=== PATIENT | female | born 1950 | race Caucasian/White ===

== ENCOUNTER 2016-11-18 21:55 | Inpatient (IN) | payer MEDICARE, OTHER ==
[2016-11-18] MEDS ORDERED: Levofloxacin 250 MG Tab PO ONE (23:53)
[2016-11-19] MEDS ORDERED: Ondansetron 4 MG Tab.DIS PO PRN (00:46)
[2016-11-19] MEDS ORDERED: Bisacodyl 5 MG Tab PO PRN (00:46)
[2016-11-19] MEDS ORDERED: Temazepam 15 MG Cap PO PRN (00:46)
[2016-11-19] MEDS ORDERED: Ibuprofen 400 MG Tab PO PRN (00:46)
[2016-11-19] MEDS ORDERED: Benztropine 1 MG Tab PO PRN (01:07)
[2016-11-19] MEDS: Acetaminophen 325 MG Tab PO PRN ×2 (03:09→12:38)
[2016-11-19] MEDS ORDERED: COLESEVELAM 625 MG PO SCH (08:00)
[2016-11-19] MEDS: Enoxaparin 40 MG/0.4 ML Syringe SUBCUT SCH (09:41)
[2016-11-19] MEDS: Levothyroxine 100 MCG Tab PO SCH (09:41)
--- NOTE | 2016-11-19 11:26 | HP ---
ADMISSION DATE: 11/19/2016 HISTORY OF PRESENT ILLNESS: Clotilde Sylvester is a 66-year-old single female from [place], [place], who was admitted through the ER to [facility][Note 3]. She presented with complicated progressive perineal discomfort, discharge in significant pain related issues. 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 Has been seen by Dr. Crescencio Willard, Surgical Oncology, last seen March 2016, has been seen by Dr. Daugherty in spring. Increasing pain discomfort and pressure dictating intervention and care. Seen in the emergency room, given one dose of oral levofloxacin, no intervention since that time. MEDICATIONS: Present daily medications include: 1. Welchol 625 mg 1 daily. 2. Levothyroxine 200 mcg one p.o. daily. 3. Meloxicam 50 mg 1 p.o. daily for pain. 4. Seroquel 300 mg at bedtime. 5. Ramipril 5 mg 1 p.o. daily for blood pressure. ALLERGIES: Allergic to penicillin, sulfa, Halcion, and diagnostic x-ray, reactions unknown. PAST MEDICAL HISTORY: Significant for schizoaffective disorder, hyperlipidemia, hypothyroidism, previous sarcoma perineal, essential hypertension, and bipolar disease. Other surgical procedures include tonsillectomy, adenoidectomy, and cholecystectomy. She has had a previous left forearm fracture. No other operative procedures, hospitalizations, unusual childhood diseases, major injuries, or fractures. SOCIAL HISTORY: Resident of [place], lives in [facility] [facility] [place], single, no children. Long-term disability due to schizophrenia. FAMILY HISTORY: Negative for early heart disease, diabetes mellitus, or inheritable cancers. REVIEW OF SYSTEMS: CONSTITUTIONAL: Complaints of perineal discomfort. EYES: Sees well by report. EARS: Hears without difficulty. Oropharynx: Good dentition and daily care. No loose teeth. CHEST: No cough, wheeze, or congestion. CARDIOVASCULAR: Denies chest pain, palpitations, or syncope. GI: Regular predictable stools, no blood in stools. : Good voiding pattern. No blood in urine. SKIN: No open sores or lesions. ENDOCRINE: No excessive thirst or urination. ALLERGY: No chronic cough, wheeze, or congestion. PSYCHIATRIC: Schizophrenia bipolar disease. PHYSICAL EXAMINATION: VITAL SINGS: 36.9, 102/66, 18, 95%. Pulse is 75 per exam. General: Elderly lady, cooperative, conversant, speech a bit gated. HEENT: Funduscopic benign. Conjunctiva clear. Bright tympanic membranes. Clear nasal discharge. Mouth and oropharynx clear. Good gag reflex. Tongue midline. NECK: Benign. Thyroid small. CHEST: Clear in all lung gould. HEART: Regular without ectopy or murmur. BREASTS: Deferred. ABDOMEN: Benign. Right upper quadrant cholecystectomy scar. Liver edge palpable. No splenic enlargement. PELVIC: Deferred, but large erythematous reactive changes. Discharge from the left perineum. Complicated fullness and redness, right perineum. EXTREMITIES: Well perfused. LABORATORY STUDIES: Lactic acid 2, C-reactive greater than 20. ASSESSMENT: Complicated perineal tissue abscess, infection. Previous intervention with radiation for sarcoma perineum. PLAN: Antibiotics timely and appropriate, intravenous. Complementary care and well being. Surgical consultation. Laboratory studies to follow. Dr. Daugherty see in consultation. /[id number] /MAXIM
[2016-11-19] MEDS ORDERED: cefTRIAXone 2 GM in Sodium Chloride 0.9% 100 ML IV SCH (11:30)
[2016-11-19] MEDS: Sodium Chloride 0.9% 250 ML IV SCH (12:05)
--- NOTE | 2016-11-19 12:07 | PCM.CONS ---
H&P History of Present Illness - General Date of Service: 11/19/16 Source of Information: Old records History Limitations: Reports: Uncooperative - History of Present Illness Initial Comments - Free Text/Narative: 66 yo wf who is well known to me. she has a hx of a perineal sarcoma with post operative radiation. Has had a long standing issue with ulceration and skin irritation done involving the labia. Apparently was brought in last pm. Details of ED visit not available at this time. She apparently was given a single dose of levaquin orally and was admitted. CBC is normal. She has a hx of schizoaffective disorder affecting obtaining any hx. vaginal area Pain Score (Numeric/FACES): 0 - Related Data Allergies/Adverse Reactions: Allergies Allergy/AdvReac Type Severity Reaction Status Date / Time Penicillins Allergy Unknown unknown Verified 11/18/16 22:15 Sulfa (Sulfonamide Allergy Unknown unknown Verified 11/18/16 22:15 Antibiotics) triazolam [From Halcion] Allergy Unknown unknown Verified 11/18/16 22:15 DIAGNOSTIC XRAY MATERIALS AdvReac BURNING Uncoded 11/18/16 22:15 FEELING Home Medications: Home Meds Colesevelam [Welchol] 625 mg PO BIDMEALS 08/19/14 [History] Levothyroxine Sodium [Synthroid] 200 mcg PO DAILY 08/19/14 [History] Ramipril [Altace] 10 mg PO DAILY 08/19/14 [History] Benztropine Mesylate 1 mg PO DAILY PRN 10/24/15 [History] Meloxicam 15 mg PO DAILY 10/24/15 [History] QUEtiapine [SEROquel] 600 mg PO BEDTIME 10/24/15 [History] Past Medical History HEENT History: Reports: Impaired vision Cardiovascular History: Reports: High cholesterol, Hypertension Gastrointestinal History: Reports: Chronic constipation, GERD, Other (see below) Other Gastrointestinal History: Constipation is likely a side effect of her medications. Genitourinary History: Reports: Other (see below) Other Genitourinary History: WOUND DEBRIDEMENT OF LEFT LABIAL AREA POST RADIATION. 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 Endocrine Surgical History: Reports: Thyroidectomy Social & Family History - Family History Family Medical History: Unobtainable - Tobacco Use Smoking Status *Q: Never Smoker Years of Tobacco use: 25 Used Tobacco, but Quit: Yes Month Tobacco Last Used: AUG 2012 Second Hand Smoke Exposure: No - Caffeine Use Caffeine Use: Reports: None - Alcohol Use Days Per Week of Alcohol Use: 0 - Recreational Drug Use Recreational Drug Use: No H&P Review of Systems - Review of Systems: Review Of Systems: Unable To Obtain (uncooperative.) Exam - Exam Exam: See Below - Vital Signs Vital Signs: Last Vital Signs Temp 36.9 C 11/19/16 11:33 Pulse 85 11/19/16 06:00 Resp 18 11/19/16 11:33 BP 126/52 L 11/19/16 11:33 Pulse Ox 97 11/19/16 11:33 Weight: 58.513 kg - Exam General: alert, oriented Neck: supple, trachea midline Cardiovascular: regular rate, regular rhythm Abdomen: normal bowel sounds, soft (Female) Exam: Other (radiation changes to perineum. ulceration is markedly healed compared to the last time I saw here. ) - Patient Data Lab Results last 24 hrs: Laboratory Results - last 24 hr 11/19/16 11/19/16 Range/Units 11:00 11:00 WBC 10.6 (4.5-12.0) X10-3/uL RBC 3.63 (3.23-5.20) x10(6)uL Hgb 8.8 L (11.5-15.5) g/dL Hct 27.5 L (30.0-51.3) % MCV 75.9 L (80-96) fL MCH 24.4 L (27.7-33.6) pg MCHC 32.1 L (32.2-35.4) g/dL RDW 13.6 (11.5-15.5) % Plt Count 371 H (125-369) X10(3)uL MPV 7.7 (7.4-10.4) fL Add Manual Diff Yes Neutrophils % (Manual) 85 H (46-82) % Band Neutrophils % 2 (0-6) % Lymphocytes % (Manual) 6 L (13-37) % Monocytes % (Manual) 7 (4-12) % Microcytosis Few Sodium 123 L (135-145) mmol/L Potassium 4.0 (3.5-5.3) mmol/L Chloride 91 L (100-110) mmol/L Carbon Dioxide 26 (23-29) mmol/L BUN 13 (8-23) mg/dL Creatinine 0.6 (0.6-1.3) mg/dL Est Cr Clr Drug Dosing 80.72 mL/min Estimated GFR (MDRD) > 60 (>60) BUN/Creatinine Ratio 21.7 H (9-20) Glucose 128 H (80-116) mg/dL Calcium 8.3 L (8.6-10.2) mg/dL Total Bilirubin 0.5 (0.1-1.3) mg/dL AST 21 (5-27) IU/L ALT 13 L D (14-26) IU/L Alkaline Phosphatase 91 (56-112) IU/L Total Protein 6.4 (6.0-8.0) g/dL Albumin 2.6 L (3.2-4.6) g/dL Globulin 3.8 g/dL Albumin/Globulin Ratio 0.7 Result Diagrams: 11/19/16 11:00 11/19/16 11:00 Consult PN Assessment/Plan Procedures: Procedures COMPLETE CBC W/AUTO DIFF WBC (11/13/14) COMPREHEN METABOLIC PANEL (11/13/14) CT THORAX W/O DYE (12/10/15) DEBRIDE GENITALIA & PERINEUM (10/25/15) EMERGENCY DEPT VISIT (09/05/16) EMERGENCY DEPT VISIT (08/19/14) MRI PELVIS W/O DYE (12/10/15) PROTHROMBIN TIME (11/13/14) ROUTINE VENIPUNCTURE (11/13/14) THER/PROPH/DIAG INJ SC/IM (08/19/14) TISSUE EXAM BY PATHOLOGIST (02/19/16) URINALYSIS AUTO W/SCOPE (08/19/14) US EXAM PELVIC COMPLETE (01/17/15) X-RAY EXAM OF KNEE 3 (08/19/14) (1) Skin ulcer due to radiation exposure SNOMED Code(s): 89626462 Code(s): L98.499 - NON-PRESSURE CHRONIC ULCER OF SKIN OF SITES W UNSP SEVERITY; Y84.2 - RADIOLOG PROC/RADIOTHRPY CAUSE ABN REACT/COMPL, W/O MISADVNT Current Visit: Yes Assessment:: markedly improved. Problem List Initiated/Reviewed/Updated: Yes Plan: recommend whirlpool. fluid restriction for low Na
[2016-11-19] MEDS: cefTRIAXone 2 GM in Sodium Chloride 0.9% 100 ML IV SCH (12:30)
--- NOTE | 2016-11-19 16:11 | CR ---
INDICATION: Fever. CHEST: PA and lateral views of the chest 11/18/2016 were compared with 2012 and revealed increased tortuosity and calcification in the aorta with increased heart size compared with the previous examination. Left ventricular enlargement is noted on the lateral view. Bridging hyperostotic, flowing hyperostotic changes in the mid to lower thoracic spine suggest DISH. Demineralization is suggested compatible with osteoporosis, but should be correlated clinically. Somewhat flattened diaphragm leaf with slightly prominent AP diameter, raise question of COPD. Heavy markings are noted at the lung bases, especially on the right, and appear unchanged for the most part. It is difficult to entirely exclude minimal patchy pneumonia at either lung base. However, no consolidating pneumonia or effusion was seen. IMPRESSION: 1. No definite acute process, but with slightly heavy markings at the lung bases, it is difficult to exclude a minimal patchy bronchopneumonia. 2. COPD. 3. Osteoporosis. 4. DISH. 5. ASHD, progressive, with cardiomegaly/left ventricular enlargement. MTDD
[2016-11-19] MEDS: QUEtiapine 100 MG Tab PO SCH (21:18)
[2016-11-20] MEDS: Levothyroxine 100 MCG Tab PO SCH (06:20)
[2016-11-20] MEDS: Sodium Chloride 0.9% 250 ML IV SCH (06:20)
[2016-11-20] MEDS: Enoxaparin 40 MG/0.4 ML Syringe SUBCUT SCH (08:24)
--- NOTE | 2016-11-20 08:33 | ER ---
DATE SEEN: 11/18/2016 TIME SEEN: She was seen at 2215 hours. HISTORY OF PRESENT ILLNESS: This is a 66-year-old woman with schizophrenia, who lives in assisted living, has extensive tardive dyskinesia, and is a good communicator. She has complaints of redness and soreness on her bottom (perineum). The patient had lived in an apartment in non-assisted living. PAST MEDICAL HISTORY: The patient has known cervical cancer with previous chemotherapy and radiation therapy treatment. Schizophrenia. She has hypertension and is diabetic. She has had progressively increasing soreness of perineum and burning with passing urine. She a fair historian. CURRENT MEDICATIONS: 1. Levothyroxine. 2. Meloxicam. 3. Colace. 4. Sevelamer (cholestyramine-type medicine for sequestration of bile). 5. Tessalon Perles. 6. Ramipril. 7. Quetiapine. ALLERGIES: Penicillin, sulfa, triazolam, x-ray diagnostics materials. PAST MEDICAL HISTORY: Schizophrenia and knee discomfort. PHYSICAL EXAMINATION: GENERAL: The patient is writhing about, has marked tardive dyskinesia with oral automatisms and marked purposeless random motion of upper and lower extremities. HEENT: PERRLA intact. Pharynx without abnormality. The patient is alert and appropriate in conversation and thought content. No thyromegaly or masses. NECK: No cervical adenopathy. LUNGS: Clear to auscultation without rales or rhonchi. HEART: S1 and S2. No murmur. ABDOMEN: Soft, mild discomfort. Perineum, extensive erythema. There is also white blistering, very raw discoloration of skin. NEUROLOGIC: Deep tendon reflexes slightly increased. Cranial nerves 2 through 12 intact. Automatisms and random motion of the head, upper extremities, and marked oral dyskinesia of the mouth. EMERGENCY DEPARTMENT COURSE: The nurses attempted to perform a urinary catheterization without success. Lactic acid was 2. C-reactive protein was 20. Because of extensive infection and inflammation, she will need to have a catheter placed, improvement of hygiene, and special treatment of the skin. Orders written for the patient. Started on Levofloxacin 500 mg orally. We will continue with thyroid medicine. DIAGNOSIS: PERINEUM INFECTION OTHER DIAGNOSES: Hypothyroidism, treated; anxiety; movement disorder; schizophrenia; hypertension; elevated C-reactive protein secondary to patient's extensive inflammation. /[id number] PATRICIA/MAXIM FREEMAN
--- NOTE | 2016-11-20 11:35 | PN ---
DATE SEEN: 11/20/2016 REASON FOR VISIT: Perineal ulceration. HISTORY OF PRESENT ILLNESS: Clotilde is a 66-year-old, pleasant female, who came in because of redness and ulceration of the perineum. She has a history of pleomorphic sarcoma with radiation several years ago and has had increased pain in the area. For concern of infection, she was admitted. Pain this morning has vastly improved. She is currently on Rocephin and clindamycin. She has no urinary symptoms and no fever or chills. PAST MEDICAL HISTORY: Hypertension, schizophrenia, COPD. SOCIAL HISTORY: Previous smoker. ALLERGIES: Reviewed. Please see the nurse's notes. MEDICATIONS: Reviewed. Please see the nurse's notes. PHYSICAL EXAMINATION: VITAL SIGNS: Her blood pressure today is 121/79, pulse is 84, and temp 98.3. MENTAL STATUS: Alert. Normal speech, however, she has frequent involuntary movements affecting her demeanor and speech. SKIN: The perineal area has red hardened area that is slightly tender to palpation and warm. No drainage or discharge noted. ABDOMEN: Soft. LABORATORY STUDIES: CBC and CMP are pending from this morning. From yesterday, her C-reactive protein was more than 20. Urinalysis showed 20 to 30 white cells. Sodium was 123, and hemoglobin was 8.8. Her previous basic metabolic profile reviewed from [facility] showed sodium of 139. FINAL IMPRESSION: 1. Perineal ulceration, status post radiation. 2. History of pleomorphic sarcoma in the same area. 3. Hyponatremia, acute. 4. Anemia, microcytic, unknown reason. 5. Schizophrenia. 6. Hypertension. PLAN: 1. Continue fluid restriction. 2. Continue IV antibiotics. 3. Obtain further workup for the low hemoglobin, including reticulocyte count, fecal occult blood testing, TIBC, ferritin levels, but this could be done as an outpatient, once she is discharged, once the initial infection seems to have subsided. My plan is possibly in 10 days to go home. 4. Continue home medications. /[id number] TN/MODL
[2016-11-20] MEDS: cefTRIAXone 2 GM in Sodium Chloride 0.9% 100 ML IV SCH (13:36)
[2016-11-20] MEDS: QUEtiapine 100 MG Tab PO SCH (20:42)
[2016-11-21] MEDS: Sodium Chloride 0.9% 250 ML IV SCH (00:15)
[2016-11-21] MEDS: Levothyroxine 100 MCG Tab PO SCH (05:55)
[2016-11-21] MEDS: Enoxaparin 40 MG/0.4 ML Syringe SUBCUT SCH (08:26)
--- NOTE | 2016-11-21 10:21 | PN ---
DATE SEEN: 11/21/2016 REASON FOR VISIT: Cellulitis. HISTORY OF PRESENT ILLNESS: This is a 66-year-old female who has been here because of a perineal infection, has currently been taking Rocephin and clindamycin, and symptoms have improved. She has normal pain, no drainage. She also has a history of schizophrenia that is stable; and hypothyroidism, that is currently stable. She has a previous history of pleomorphic sarcoma of the perineal area and radiation therapy at that area. REVIEW OF SYSTEMS: No weakness, fever or chills. No chest pain or shortness of breath. Slept well overnight. SOCIAL HISTORY: She is a nonsmoker. PHYSICAL EXAMINATION: VITAL SIGNS: Her blood pressure is 103/58, and pulse is 88 beats per minute. She is afebrile. SKIN: Red perineal area, hardened, did not show any worsening from yesterday. No drainage noted. MENTAL STATUS: Alert. LABORATORY DATA: Sodium 128. White cell count 10.3 and hemoglobin 9.1 as of yesterday. IMPRESSION: 1. She has history of pleomorphic sarcoma of the perineal area, status post radiation. 2. Cellulitis of the perineal area. 3. Hyponatremia. 4. Anemia of iron deficiency. 5. Hypothyroidism, stable. 6. Stable hypertension. PLAN: My plan is to discharge the patient home on clindamycin orally and to have her see her physician next week. I will also send her home on iron tablet for supplementation with the hope of further workup tomorrow. /[id number] DONNA/MAXIM
[2016-11-21] MEDS: cefTRIAXone 2 GM in Sodium Chloride 0.9% 100 ML IV SCH (12:48)
[2016-11-21] MEDS ORDERED: Sodium Chloride 0.9% 10 ML Syringe FLUSH PRN (12:50)
[2016-11-21 12:55] VITALS: BP 118/82
--- NOTE | 2016-11-21 13:31 | DISCH ---
DISCHARGE DATE: 11/21/2016 REASON FOR ADMISSION: Perineum infection. DISCHARGE DIAGNOSES: 1. Cellulitis perineum. 2. History of pleomorphic sarcoma of the perineum, status post radiation. 3. Hypertension. 4. Schizophrenia. 5. Iron deficiency anemia of unknown reason. 6. Hyponatremia of unknown reason. 7. Hypothyroidism, stable. CONSULTATIONS: Dr. Daugherty. PROCEDURES: None. BRIEF HISTORY AND HOSPITAL COURSE: This is a 66-year-old female who came to the emergency room on the with complaints of worsening pain in the perineal area. The redness and soreness worsened after previous chemo and radiation therapy for perineal sarcoma. She was admitted for possible debridement and IV antibiotics. Dr. Daugherty was consulted. He did not feel that she needed any debridement. She was put on Rocephin and clindamycin intravenously. Her symptoms improved. She was noted to have anemia, hemoglobin of 8.8 initially and came up to 9.1, also had a sodium of 123 on admission, which improved to 128. The causes of both were not elicited. She was discharged home after she improved. She did not have any fever, white cell count, or pain on . DISCHARGE MEDICATIONS: Clindamycin 300 mg p.o. q.i.d., ferrous sulfate 325 mg b.i.d., benztropine 1 mg p.o. daily p.r.n., bisacodyl 5 mg daily p.r.n., levothyroxine 20 mcg daily, meloxicam 15 mg daily, Seroquel 600 mg at bedtime, Altace 10 mg daily, and temazepam 50 mg at bedtime. FOLLOWUP: She will see Dr. Hernandez this week for followup and further workup of anemia and hyponatremia. I spent more than 35 minutes in the discharge of the patient. /[id number] DONNA/MAXIM
== END 2016-11-21 14:10 | disposition home or self-care (01) | DRG 603 ==
LOC: FB.ED 21:55 → INTOOBSV 11-19 00:56 → FB.MS 11-19 00:56 → OBSVTOIN 11-19 08:32
PROVIDERS: ADMIT Emergency Medicine; ATTEND Family Medicine
DX: L02.215 Cutaneous abscess of perineum (principal); G24.01 Drug induced subacute dyskinesia; F20.9 Schizophrenia, unspecified; L03.315 Cellulitis of perineum; E87.1 Hypo-osmolality and hyponatremia; Z85.831 Personal history of malignant neoplasm of soft tissue; I10 Essential (primary) hypertension; F25.0 Schizoaffective disorder, bipolar type; D50.9 Iron deficiency anemia, unspecified; E03.9 Hypothyroidism, unspecified; E78.5 Hyperlipidemia, unspecified; R35.0 Frequency of micturition; R50.9 Fever, unspecified; D72.829 Elevated white blood cell count, unspecified; G89.29 Other chronic pain; R10.2 Pelvic and perineal pain
CPT/HCPCS: 36415 ×2; 71020; 80053; 81001; 83605; 85025; 86140; 87040; 87070; 87205; 87804 ×2; 99214 ×2; 99283 ×2; A9270 ×2; 83935; 87086; J0696; J1650; J7030; J7050; S0077

== ENCOUNTER 2017-01-18 11:59 | Emergency (ER) | payer MEDICARE, OTHER ==
[2017-01-18] MEDS ORDERED: Sodium Chloride 0.9% 1,000 ML IV SCH (12:15)
[2017-01-18] MEDS ORDERED: Levofloxacin/Dextrose 5%-Water 750 MG in Premix Bag 1 BAG IV ONE (12:39)
--- NOTE | 2017-01-18 13:51 | EDM.PDOC ---
ED HPI GENERAL MEDICAL PROBLEM - General Chief Complaint: General Stated Complaint: FAILURE TO THRIVE Time Seen by Provider: 01/18/17 12:40 Source of Information: Reports: Patient, EMS, EMS Notes Reviewed History Limitations: Reports: Physical Impairment, Other (failure to thrive) - History of Present Illness INITIAL COMMENTS - FREE TEXT/NARRATIVE: 66 years old w f came to the ed after the ems was called for a well check call be the neighbours. As the EMS personal arrived, her house was in disarray, faces every where. Strong smell. On arrival to the ed, pt was following verbal commands, pt was not able to give a HPI. Vitals: BP 140/106 pulse 89, Puls ox 94 temp 36.9, no family. Onset Date: 01/07/17 Onset Time: 05:00 Duration: Day(s): Location: Reports: Generalized Quality: Reports: Pressure Severity: Moderate Associated Symptoms: Reports: Loss of Appetite, Rash, Weakness - Related Data Allergies Allergy/AdvReac Type Severity Reaction Status Date / Time Penicillins Allergy Unknown unknown Verified 01/18/17 12:46 Sulfa (Sulfonamide Allergy Unknown unknown Verified 01/18/17 12:46 Antibiotics) triazolam [From Halcion] Allergy Unknown unknown Verified 01/18/17 12:46 DIAGNOSTIC XRAY MATERIALS AdvReac BURNING Uncoded 11/18/16 22:15 FEELING Home Meds: Home Meds Colesevelam [Welchol] 625 mg PO BIDMEALS 08/19/14 [History] Levothyroxine Sodium [Synthroid] 200 mcg PO DAILY 08/19/14 [History] Ramipril [Altace] 10 mg PO DAILY 08/19/14 [History] Meloxicam 15 mg PO DAILY 10/24/15 [History] Ferrous Gluconate 324 mg PO BID #60 tablet 11/21/16 [Rx] Hydrocodone/Acetaminophen [Hydrocodon-Acetaminophen 5-325] 1 tab PO Q4HR PRN [History] Past Medical History HEENT History: Reports: Impaired Vision Cardiovascular History: Reports: High Cholesterol, Hypertension Gastrointestinal History: Reports: Chronic Constipation, GERD, Other (See Below) Other Gastrointestinal History: Constipation is likely a side effect of her medications. Genitourinary History: Reports: Other (See Below) Other Genitourinary History: WOUND DEBRIDEMENT OF LEFT LABIAL AREA POST RADIATION. 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 - Infectious Disease History Infectious Disease History: Reports: Chicken Pox, Measles - Past Surgical History Female Surgical History: Reports: Other (See Below) Social & Family History - Family History Family Medical History: Unobtainable - Tobacco Use Smoking Status *Q: Never Smoker Years of Tobacco use: 25 Used Tobacco, but Quit: Yes Month Tobacco Last Used: AUG 2012 Second Hand Smoke Exposure: No - Caffeine Use Caffeine Use: Reports: None - Alcohol Use Days Per Week of Alcohol Use: 0 - Recreational Drug Use Recreational Drug Use: No ED ROS GENERAL - Review of Systems Review Of Systems: Unable To Obtain ED EXAM, GENERAL - Physical Exam Exam: See Below Exam Limited By: Physical Impairment General Appearance: Alert, Mild Distress, Cachetic Eye Exam: Bilateral Eye: Abnormal EOM Ears: Normal External Exam Ear Exam: Bilateral Ear: Auricle Normal Nose: Normal Inspection Throat/Mouth: Normal Inspection, Normal Lips Head: Atraumatic, Normocephalic Neck: Normal Inspection Respiratory/Chest: No Respiratory Distress, Lungs Clear, Normal Breath Sounds Cardiovascular: Normal Peripheral Pulses, Regular Rate, Rhythm Peripheral Pulses: 2+: Femoral (L), Femoral (R) GI/Abdominal: Normal Bowel Sounds, Soft, Non-Tender (Female) Exam: Normal External Exam Rectal (Female) Exam: Perirectal Abscess, Other (perianal cellulityis with decubity ulcers) Back Exam: Normal Inspection Extremities: Normal Inspection, Normal Range of Motion Neurological: Alert, Confused Psychiatric: Depressed Mood Skin Exam: Rash (perianal abscess, perianal cellulitis) Lymphatic: No Adenopathy EKG INTERPRETATION EKG Date: 01/18/17 Time: 13:40 Rhythm: NSR Rate (beats/min): 81 [place]: RAD-right axis deviation P-wave: present QRS: normal ST-T: normal QT: normal Comparison: NA - no prior EKG Course - Vital Signs Text/Narrative:: 66 years old w f came to the ed after the ems was called for a well check call be the neighbours. As the EMS personal arrived, her house was in disarray, faces every where. Strong smell. On arrival to the ed, pt was following verbal commands, pt was not able to give a HPI. Vitals: BP 140/106 pulse 89, Puls ox 94 temp 36.9, no family. PE: Cachexia, pelvic abscesses, decubity ulcers, dry mucosal membranes. LABS: wbc 26k, hgb 8.8 lACTIC ACID 1.4 bcx results are pending Imaging: CT abd. pelvis: Pelvic abscesses, CXR NAD Impression: Pelvic abscesses, perianal cellulitis, cachexia, elevated WBC Tx: levoquin, Vanco, NSm Duoeb. Reexam: Improved Consultation: [facility] Last Recorded V/S: Last Vital Signs Temp 36.9 C 01/18/17 12:10 Pulse 55 L 01/18/17 12:10 Resp 20 01/18/17 12:10 BP 140/105 H 01/18/17 12:10 Pulse Ox 98 01/18/17 12:40 - Orders/Labs/Meds Orders: Active Orders 24 hr Category Date Time Status Aguiar Catheter Insertion [Insert Urinary Catheter] [OM. Care 01/18/17 15:30 Ordered PC] Q24H Insert Aguiar Catheter [Insert Urinary Catheter] [OM.PC] Care 01/18/17 15:30 Ordered Q24H Urinary Catheter Assessment [RC] QSHIFT Care 01/18/17 15:19 Active Abdomen Pelvis w Cont [CT] Stat Exams 01/18/17 12:38 Taken CXR [Chest 1V Frontal] [CR] Stat Exams 01/18/17 12:32 Taken CULTURE BLOOD [BC] Urgent Lab 01/18/17 13:00 Received CULTURE BLOOD [BC] Urgent Lab 01/18/17 13:05 Received Sodium Chloride 0.9% [Normal Saline] 1,000 ml Med 01/18/17 12:15 Active IV ASDIRECTED Blood Culture x2 Reflex Set [OM.PC] Urgent Oth 01/18/17 12:37 Ordered EKG 12 Lead [EK] Routine Ther 01/18/17 13:35 Ordered Medication Orders Sodium Chloride (Normal Saline) 1,000 mls @ 999 mls/hr IV ASDIRECTED KATIE Last Admin: 01/18/17 13:13 Dose: 999 mls/hr Labs: Laboratory Tests 01/18/17 01/18/17 01/18/17 Range/Units 12:30 12:30 12:30 WBC 23.1 H (4.5-12.0) X10-3/uL RBC 3.78 (3.23-5.20) x10(6)uL Hgb 8.8 L (11.5-15.5) g/dL Hct 27.9 L (30.0-51.3) % MCV 74.0 L (80-96) fL MCH 23.4 L (27.7-33.6) pg MCHC 31.7 L (32.2-35.4) g/dL RDW 19.6 H (11.5-15.5) % Plt Count 808 H (125-369) X10(3)uL MPV 6.6 L (7.4-10.4) fL Add Manual Diff Yes Neutrophils % (Manual) 82 (46-82) % Band Neutrophils % 5 (0-6) % Lymphocytes % (Manual) 10 L (13-37) % Monocytes % (Manual) 3 L (4-12) % Poikilocytosis Few Anisocytosis Moderate H Microcytosis Moderate H PT 14.3 H (8.7-11.1) INR 1.41 H (0.89-1.13) Sodium 153 H D (135-145) mmol/L Potassium 3.6 (3.5-5.3) mmol/L Chloride 117 H* D (100-110) mmol/L Carbon Dioxide 24 (23-29) mmol/L BUN 47 H D (8-23) mg/dL Creatinine 1.1 (0.6-1.3) mg/dL Est Cr Clr Drug Dosing TNP Estimated GFR (MDRD) 50 L (>60) BUN/Creatinine Ratio 42.7 H (9-20) Glucose 139 H (80-116) mg/dL Lactic Acid (0.5-2.2) mmol/L Calcium 9.3 (8.6-10.2) mg/dL Creatine Kinase 299 H* (60-160) IU/L Troponin I (0.02-0.06) NG/ML Urine Color (YELLOW) Urine Appearance (CLEAR) Urine pH (5.0-6.5) Ur Specific [place] (1.010-1.025) Urine Protein (NEGATIVE) mg/dL Urine Glucose (UA) (NEGATIVE) mg/dL Urine Ketones (NEGATIVE) mg/dL Urine Occult Blood (NEGATIVE) Urine Nitrite (NEGATIVE) Urine Bilirubin (NEGATIVE) Urine Urobilinogen (NEGATIVE) mg/dL Ur Leukocyte Esterase (NEGATIVE) Urine RBC (0) Urine WBC (0) Ur Squamous Epith Cells (NS,R,O) Amorphous Sediment Urine Bacteria (NS) 01/18/17 01/18/17 01/18/17 Range/Units 12:30 12:30 15:23 WBC (4.5-12.0) X10-3/uL RBC (3.23-5.20) x10(6)uL Hgb (11.5-15.5) g/dL Hct (30.0-51.3) % MCV (80-96) fL MCH (27.7-33.6) pg MCHC (32.2-35.4) g/dL RDW (11.5-15.5) % Plt Count (125-369) X10(3)uL MPV (7.4-10.4) fL Add Manual Diff Neutrophils % (Manual) (46-82) % Band Neutrophils % (0-6) % Lymphocytes % (Manual) (13-37) % Monocytes % (Manual) (4-12) % Poikilocytosis Anisocytosis Microcytosis PT (8.7-11.1) INR (0.89-1.13) Sodium (135-145) mmol/L Potassium (3.5-5.3) mmol/L Chloride (100-110) mmol/L Carbon Dioxide (23-29) mmol/L BUN (8-23) mg/dL Creatinine (0.6-1.3) mg/dL Est Cr Clr Drug Dosing Estimated GFR (MDRD) (>60) BUN/Creatinine Ratio (9-20) Glucose (80-116) mg/dL Lactic Acid 1.4 (0.5-2.2) mmol/L Calcium (8.6-10.2) mg/dL Creatine Kinase (60-160) IU/L Troponin I 3.56 H* (0.02-0.06) NG/ML Urine Color Yellow (YELLOW) Urine Appearance Clear (CLEAR) Urine pH 8.0 H (5.0-6.5) Ur Specific [place] 1.005 L (1.010-1.025) Urine Protein Negative (NEGATIVE) mg/dL Urine Glucose (UA) Normal (NEGATIVE) mg/dL Urine Ketones 15 H (NEGATIVE) mg/dL Urine Occult Blood Negative (NEGATIVE) Urine Nitrite Negative (NEGATIVE) Urine Bilirubin Small H (NEGATIVE) Urine Urobilinogen 1 H (NEGATIVE) mg/dL Ur Leukocyte Esterase Negative (NEGATIVE) Urine RBC 0-5 (0) Urine WBC 0-5 (0) Ur Squamous Epith Cells Occasional (NS,R,O) Amorphous Sediment Moderate Urine Bacteria Rare H (NS) Meds: Medications Generic Name Dose Route Start Last Admin Trade Name Freq PRN Reason Stop Dose Admin Sodium Chloride 1,000 mls @ 999 mls/hr 01/18/17 12:15 01/18/17 13:13 Normal Saline IV 999 mls/hr ASDIRECTED KATIE Administration Discontinued Medications Generic Name Dose Route Start Last Admin Trade Name Freq PRN Reason Stop Dose Admin Levofloxacin/Dextrose 750 mg/ 150 mls @ 100 mls/hr 01/18/17 12:39 01/18/17 14 :12 Premix IV 01/18/17 14:08 100 mls/hr ONETIME ONE Administration Vancomycin HCl 1 gm/ Sodium 250 mls @ 250 mls/hr 01/18/17 15:00 01/18/17 15: 58 Chloride IV 01/18/17 15:59 250 mls/hr ONETIME ONE Administration Departure - Departure Time of Disposition: 15:22 Disposition: DC/Tfer to Other 70 Condition: fair Clinical Impression: Failure to thrive in adult, Pelvic abscess in female, Dehydration, Cachexia, Poor dentition Elevated white blood cell count Qualifiers: Leukocytosis type: other Qualified Code(s): D72.828 - Other elevated white blood cell count Anemia Qualifiers: Anemia type: unspecified type Qualified Code(s): D64.9 - Anemia, unspecified - Discharge Information Referrals: Rosa Isela Buenrostro MD [Primary Care Provider] - Forms: ED Department Discharge - My Orders Last 24 Hours: My Active Orders 01/18/17 12:15 Sodium Chloride 0.9% [Normal Saline] 1,000 ml IV ASDIRECTED 01/18/17 12:32 CXR [Chest 1V Frontal] [CR] Stat 01/18/17 12:37 Blood Culture x2 Reflex Set [OM.PC] Urgent 01/18/17 12:38 Abdomen Pelvis w Cont [CT] Stat 01/18/17 13:00 CULTURE BLOOD [BC] Urgent 01/18/17 13:05 CULTURE BLOOD [BC] Urgent 01/18/17 13:35 EKG 12 Lead [EK] Routine 01/18/17 15:19 Urinary Catheter Assessment [RC] QSHIFT 01/18/17 15:30 Aguiar Catheter Insertion [Insert Urinary Catheter] [OM.PC] Q24H Insert Aguiar Catheter [Insert Urinary Catheter] [OM.PC] Q24H - Assessment/Plan Last 24 Hours: My Active Orders 01/18/17 12:15 Sodium Chloride 0.9% [Normal Saline] 1,000 ml IV ASDIRECTED 01/18/17 12:32 CXR [Chest 1V Frontal] [CR] Stat 01/18/17 12:37 Blood Culture x2 Reflex Set [OM.PC] Urgent 01/18/17 12:38 Abdomen Pelvis w Cont [CT] Stat 01/18/17 13:00 CULTURE BLOOD [BC] Urgent 01/18/17 13:05 CULTURE BLOOD [BC] Urgent 01/18/17 13:35 EKG 12 Lead [EK] Routine 01/18/17 15:19 Urinary Catheter Assessment [RC] QSHIFT 01/18/17 15:30 Aguiar Catheter Insertion [Insert Urinary Catheter] [OM.PC] Q24H Insert Aguiar Catheter [Insert Urinary Catheter] [OM.PC] Q24H
[2017-01-18 16:33] VITALS: BP 138/84
--- NOTE | 2017-01-19 09:12 | CT ---
INDICATION: Pelvic abscess. Right buttock pus and drainage. CT ABDOMEN AND PELVIS WITHOUT CONTRAST: Spiral 1.25-mm axial sections were obtained through the abdomen and pelvis with sagittal and coronal reconstructions. No contrast was allowed by the patient. Total Exam DLP = 222.71 mGy-cm. Detail is severely limited due to lack of intraperitoneal fat. There is some metallic density layering in the urinary bladder, of questionable significance and etiology. Evidence of previous surgery is noted with clips in the right upper quadrant and epigastrium and at the gallbladder bed, compatible with cholecystectomy. A definite active infiltrate or effusion was not identified. Evidence of COPD is noted. Focal abnormalities of the upper abdominal organs are difficult to exclude with the lack of contrast and lack of intraperitoneal fat. No definite retroperitoneal mass is seen. In the pelvis, large amounts of stool are noted in the colon. The urinary bladder is distended. In the perineum, there are collections of gas, likely representing gas-forming organism infection bilaterally, and more severe on the left than right. Perianal gas bubbles, as well as surrounding the inferior pubic ramus and at the pubic symphysis bilaterally are noted. Erosion or destruction of the pubic symphysis bony structures and the inferior pubic ramus on the left, and to a lesser extent on the right is noted. On the left, the areas of destruction extend into the posterior aspect of the inferior pubic ramus where gas bubbles are also seen. A very large abscess is suggested on the left, measuring at least 8 cm, while an over 3-cm abscess is suggested in the medial right superior thigh with gas-forming organism infection. Mass effect is definitely more prominent on the left adjacent to and inferolaterally to the inferior pubic ramus on the left. Abnormal gas formations extend into the inguinal areas bilaterally, again compatible with gas-forming organism infection spreading into those areas. Rather severe degenerative changes are noted at the right hip joint with relatively mild degenerative change at the left hip joint. 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 The right-sided gas-forming infection extends into the medial proximal to mid thigh area on the right, - It does extend inferiorly posteriorly on the left to a lesser extent than on the right. CT PELVIS: Examination of the pelvis was obtained by CT, as noted above. Report was called to Dr. Jolley at approximately 1350 hours, 01/18/2017. [email or web address]
--- NOTE | 2017-01-19 10:50 | CR ---
INDICATION: Short of breath. CHEST: AP upright portable view of the chest, 01/18/2017, was compared with and 09/26/2012, revealing the aorta to be somewhat tortuous as previously with calcification in the arch of the aorta. The heart appeared within normal limits in size and shape. The lungs appear to be slightly hyperaerated without a definite active infiltrate or effusion identified. IMPRESSION: No acute process. Findings as noted above. MTDD
== END 2017-01-18 16:05 | disposition other institution (70) ==
LOC: FB.ED 11:59
DX: R62.7 Adult failure to thrive (principal); N73.9 Female pelvic inflammatory disease, unspecified; E86.0 Dehydration; R64 Cachexia; K08.9 Disorder of teeth and supporting structures, unspecified; D72.828 Other elevated white blood cell count; D64.9 Anemia, unspecified; I10 Essential (primary) hypertension; E78.00 Pure hypercholesterolemia, unspecified; K21.9 Gastro-esophageal reflux disease without esophagitis; E11.9 Type 2 diabetes mellitus without complications; Z88.0 Allergy status to penicillin; Z88.2 Allergy status to sulfonamides; Z88.8 Allergy status to other drugs, medicaments and biological substances; Z79.899 Other long term (current) drug therapy
CPT/HCPCS: 36415; 51702; 71010; 74177; 80048; 81001; 82550; 83605; 84484; 85025; 85610; 87040; 93005; 96361; 96365; 96375; 99285; J1956; J3370; J7040; J7050